=== PATIENT | female | born 1950 | race Caucasian/White ===

== ENCOUNTER 2024-08-13 23:47 | Emergency (ER) | payer MEDICARE, OTHER ==
[2024-08-14 00:18] LABS: BASOPHILS ABSOLUTE AUTO 0.08 K/uL (0.00-0.10); BASOPHILS PERCENT AUTO 0.5 % (0.1-1.3); EOSINOPHILS ABSOLUTE AUTO 0.08 K/uL (0.00-0.40); EOSINOPHILS PERCENT AUTO 0.5 % (0.0-5.4); HEMATOCRIT 35.5 % (34.3-46.0); HEMOGLOBIN 11.7 g/dL (11.2-15.5); IMMATURE GRAN ABSOLUTE AUTO 0.05 K/uL (0.00-0.23); IMMATURE GRAN PERCENT AUTO 0.3 % (0.0-0.7); LYMPHOCYTES ABSOLUTE AUTO 1.32 K/uL (0.8-3.3); LYMPHOCYTES PERCENT AUTO 7.6 % (11.4-47.7); MEAN CORPUSCULAR HEMOGLOBIN 29.7 pg (31.6-35.5); MEAN CORPUSCULAR VOLUME 90.1 fL (81.4-99.0); MONOCYTES ABSOLUTE AUTO 1.11 K/uL (0.20-0.90); MONOCYTES PERCENT AUTO 6.4 % (3.3-12.6); NEUTROPHILS ABSOLUTE AUTO 14.74 K/uL (1.0-7.6); NEUTROPHILS PERCENT AUTO 84.7 % (40.0-78.1); PLATELET COUNT,PLT 265 K/uL (130-375); RED BLOOD CELL COUNT 3.94 M/uL (3.77-5.24); WHITE BLOOD CELL COUNT,WBC 17.4 K/uL (3.2-11.0)
[2024-08-14 00:35] LABS: C-REACTIVE PROTEIN 4.74 mg/dL (<0.50); CALCIUM 9.1 mg/dL (8.5-10.1); EST CRCL DRUG DOSING (CG) 43.91 mL/min; POTASSIUM,K 3.5 mmol/L (3.6-5.2)
[2024-08-14 00:39] LABS: ANION GAP 11.5 mmol/L (5.0-14.0)
[2024-08-14 00:40] LABS: TROPONIN I HIGH SENSITIVITY 83.8 pg/mL (<=60.3)
[2024-08-14] MEDS: Sodium Chloride 0.9% 1,000 ML IV SCH (01:06)
[2024-08-14 01:07] LABS: APPEARANCE,URINE CLEAR (CLEAR); BILIRUBIN,URINE NEGATIVE (NEGATIVE); COLOR,URINE YELLOW (YELLOW); GLUCOSE,URINE NEGATIVE (NEGATIVE); KETONES,URINE 15 mg/dL (NEGATIVE); LEUKOCYTE ESTERASE,URINE NEGATIVE (NEGATIVE); NITRITE,URINE NEGATIVE (NEGATIVE); OCCULT BLOOD,URINE SMALL (NEGATIVE); PROTEIN,URINE 100 mg/dL (NEGATIVE); UROBILINOGEN,URINE 0.2 EU/dL (0.2-1.0)
[2024-08-14 01:14] LABS: AMORPHOUS SEDIMENT,URINE FEW; BACTERIA,URINE MODERATE; EPITHELIAL CELLS,URINE FEW; MUCUS,URINE MODERATE; RBC,URINE 0-5 (0-5); WBC,URINE 0-5 (0-5)
[2024-08-14] MEDS: Doxycycline 100 MG Cap PO ONE (03:54)
[2024-08-14] MEDS: Aspirin 81 MG Tab.Chew PO ONE (03:54)
[2024-08-14] MEDS: cefTRIAXone 2 GM in Sodium Chloride 0.9% 50 ML IV ONE (03:54)
[2024-08-14 03:56] LABS: INR 1.1; PTT,PARTIAL THROMBOPLSTIN TIME 24.9 sec (21.8-27.3)
[2024-08-14] MEDS: Heparin Sodium/D5W 25,000 UNITS/500 ML BAG IV SCH (03:56)
[2024-08-14] MEDS: Heparin Sodium 5,000 Units/ML Vial IVPUSH ONE (03:56)
== END 2024-08-14 07:27 | disposition other institution (70) ==
LOC: JP.ED 23:47
DX: J18.9 Pneumonia, unspecified organism (principal); R79.89 Other specified abnormal findings of blood chemistry; Z91.018 Allergy to other foods; Z88.8 Allergy status to other drugs, medicaments and biological substances; Z79.890 Hormone replacement therapy; Z79.899 Other long term (current) drug therapy
CPT/HCPCS: 36415; 70450; 71045; 71045-26; 80048; 81001; 83605; 84484; 85025; 85610; 85730; 86140; 87428-QW; 93005; 93010; 96361; 96365; 96366; 96367; 99285; 99285-25; A9270-GY; J0696; J1644; J7030

== ENCOUNTER 2025-01-16 01:02 | Emergency (ER) | payer MEDICARE, OTHER ==
[2025-01-16] MEDS: Ondansetron 4 MG/2 ML SDV IVPUSH PRN (01:45)
[2025-01-16 02:12] LABS: BASOPHILS ABSOLUTE AUTO 0.07 K/uL (0.00-0.10); BASOPHILS PERCENT AUTO 0.8 % (0.1-1.3); EOSINOPHILS ABSOLUTE AUTO 0.27 K/uL (0.00-0.40); EOSINOPHILS PERCENT AUTO 3.1 % (0.0-5.4); IMMATURE GRAN ABSOLUTE AUTO 0.03 K/uL (0.00-0.23); IMMATURE GRAN PERCENT AUTO 0.3 % (0.0-0.7); LYMPHOCYTES ABSOLUTE AUTO 2.66 K/uL (0.8-3.3); LYMPHOCYTES PERCENT AUTO 30.1 % (11.4-47.7); MONOCYTES ABSOLUTE AUTO 1.02 K/uL (0.20-0.90); MONOCYTES PERCENT AUTO 11.5 % (3.3-12.6); NEUTROPHILS ABSOLUTE AUTO 4.79 K/uL (1.0-7.6); NEUTROPHILS PERCENT AUTO 54.2 % (40.0-78.1); PLATELET COUNT,PLT 289 K/uL (130-375); RED BLOOD CELL COUNT 3.74 M/uL (3.77-5.24); WHITE BLOOD CELL COUNT,WBC 8.8 K/uL (3.2-11.0)
[2025-01-16] MEDS: Ondansetron 4 MG/2 ML SDV ONE (02:17)
[2025-01-16 02:36] LABS: A/G RATIO 0.9 (1.2-2.2); ALANINE AMINOTRANSFERASE,ALT 24 U/L (12-78); ASPARTATE AMNIOTRANSFERASE,AST 28 U/L (15-37); BILIRUBIN TOTAL 0.2 mg/dL (0.2-1.0); BLOOD UREA NITROGEN,BUN 24 mg/dL (7-18); CARBON DIOXIDE,CO2 32 mmol/L (21-32); CHLORIDE,CL 102 mmol/L (100-108); CREATININE 0.8 mg/dL (0.6-1.0); EST CRCL DRUG DOSING (CG) 54.89 mL/min; ESTIMATED GFR 78 mL/min (>60); GLUCOSE RANDOM 113 mg/dL (74-106); POTASSIUM,K 3.9 mmol/L (3.6-5.2); PROTEIN TOTAL,TP 7.0 g/dL (6.4-8.2); SODIUM,NA 140 mmol/L (140-148)
[2025-01-16 02:37] LABS: TROPONIN I HIGH SENSITIVITY 742.9 pg/mL (<=60.3)
== END 2025-01-16 06:02 ==
LOC: JP.ED 01:02
DX: T82.897A Other specified complication of cardiac prosthetic devices, implants and grafts, initial encounter (principal); R79.1 Abnormal coagulation profile; R79.89 Other specified abnormal findings of blood chemistry; I10 Essential (primary) hypertension; E78.00 Pure hypercholesterolemia, unspecified; E03.9 Hypothyroidism, unspecified; Z79.899 Other long term (current) drug therapy; Z79.890 Hormone replacement therapy; Z91.048 Other nonmedicinal substance allergy status; Z88.8 Allergy status to other drugs, medicaments and biological substances
CPT/HCPCS: 36415; 71045; 80053; 84484; 85025; 85379; 93005; 93010; 96374; 96375; 96376; 99285; J2405; J1171

== ENCOUNTER 2025-02-15 07:13 | Emergency (ER) | payer MEDICARE, OTHER ==
[2025-02-15] MEDS ORDERED: Nitroglycerin 0.4 MG Tab.SL SL PRN (07:27)
[2025-02-15 07:32] LABS: BASE EXCESS VENOUS 3.1 mm/L; BASOPHILS ABSOLUTE AUTO 0.07 K/uL (0.00-0.10); BASOPHILS PERCENT AUTO 1.1 % (0.1-1.3); BICARBONATE,VENOUS 27.4 mmol/L; EOSINOPHILS ABSOLUTE AUTO 0.39 K/uL (0.00-0.40); EOSINOPHILS PERCENT AUTO 6.3 % (0.0-5.4); IMMATURE GRAN PERCENT AUTO 0.2 % (0.0-0.7); LYMPHOCYTES ABSOLUTE AUTO 2.20 K/uL (0.8-3.3); LYMPHOCYTES PERCENT AUTO 35.4 % (11.4-47.7); MONOCYTES ABSOLUTE AUTO 0.59 K/uL (0.20-0.90); MONOCYTES PERCENT AUTO 9.5 % (3.3-12.6); NEUTROPHILS ABSOLUTE AUTO 2.95 K/uL (1.0-7.6); NEUTROPHILS PERCENT AUTO 47.5 % (40.0-78.1); O2 SATURATION VENOUS 79.1; OXYHEMOGLOBIN 77.0 %; PCO2 VENOUS 42.5 mm/Hg; PH,VENOUS 7.426 (7.350-7.450); PLATELET COUNT,PLT 396 K/uL (130-375); PO2 VENOUS 44.7 mm/Hg; RED BLOOD CELL COUNT 4.21 M/uL (3.77-5.24); TOTAL HEMOGLOBIN 12.8 g/dL (12.0-16.0); WHITE BLOOD CELL COUNT,WBC 6.2 K/uL (3.2-11.0)
[2025-02-15 07:34] LABS: IMMATURE GRAN ABSOLUTE AUTO 0.01 K/uL (0.00-0.23)
[2025-02-15] MEDS: Ondansetron 4 MG/2 ML SDV IVPUSH ONE (07:34)
[2025-02-15 07:51] LABS: INR 1.0
[2025-02-15 08:00] LABS: TROPONIN I HIGH SENSITIVITY 11.3 pg/mL (<=60.3)
[2025-02-15 08:01] LABS: A/G RATIO 0.9 (1.2-2.2); ALANINE AMINOTRANSFERASE,ALT 19 U/L (12-78); ASPARTATE AMNIOTRANSFERASE,AST 24 U/L (15-37); BILIRUBIN TOTAL 0.3 mg/dL (0.2-1.0); BLOOD UREA NITROGEN,BUN 17 mg/dL (7-18); CARBON DIOXIDE,CO2 28 mmol/L (21-32); CHLORIDE,CL 106 mmol/L (100-108); CREATININE 0.7 mg/dL (0.6-1.0); EST CRCL DRUG DOSING (CG) 62.73 mL/min; ESTIMATED GFR 92 mL/min (>60); GLUCOSE RANDOM 111 mg/dL (74-106); POTASSIUM,K 3.8 mmol/L (3.6-5.2); PRO B-TYPE NATRIUR PEPT,BNPPRO 95 pg/mL (5-125); PROTEIN TOTAL,TP 7.4 g/dL (6.4-8.2); SODIUM,NA 140 mmol/L (140-148)
[2025-02-15] MEDS: Iopamidol 755 Mg/ML 100 ML Bottle IV ONE (09:09)
[2025-02-15] MEDS: Sodium Chloride 0.9% 10 ML Syringe FLUSH ONE (09:09)
[2025-02-15 09:48] LABS: APPEARANCE,URINE CLEAR (CLEAR); GLUCOSE,URINE NEGATIVE (NEGATIVE); OCCULT BLOOD,URINE TRACE-INTACT (NEGATIVE)
[2025-02-15 09:53] LABS: SQUAMOUS EPITHELIAL CELLS,UR RARE /HPF; UROTHELIAL CELLS,URINE NOT SEEN /HPF
[2025-02-15] MEDS: Prochlorperazine 10 MG/2 ML SDV IVPUSH ONE (10:37)
== END 2025-02-15 13:15 ==
LOC: JP.ED 07:13
DX: R07.89 Other chest pain (principal); I95.89 Other hypotension; E03.9 Hypothyroidism, unspecified; I10 Essential (primary) hypertension; E78.00 Pure hypercholesterolemia, unspecified; Z95.0 Presence of cardiac pacemaker; Z79.899 Other long term (current) drug therapy; Z88.8 Allergy status to other drugs, medicaments and biological substances; Z91.048 Other nonmedicinal substance allergy status
CPT/HCPCS: 36415; 71045; 71275; 80053; 81001; 82803; 83605; 83735; 83880; 84443; 84484; 85025; 85379; 85610; 93005; 96361; 96374; 96375; 99285; J0780; J2405; J7030; Q9967; 93010